=== PATIENT | female | born 1955 | race Caucasian/White ===

== ENCOUNTER 2021-06-20 08:45 | Emergency (ER) | payer MEDICARE, OTHER ==
--- NOTE | 2021-06-20 09:07 | EDM.PDOC ---
ED HPI GENERAL MEDICAL PROBLEM - General Chief Complaint: Respiratory Problem Stated Complaint: SHORT OF BREATH Time Seen by Provider: 06/20/21 09:06 Source of Information: Reports: Patient - History of Present Illness INITIAL COMMENTS - FREE TEXT/NARRATIVE: Марина, 66-year-old female, presents emergency department by private vehicle with complaint of difficulty breathing. She states this started last Tuesday and has persisted and slightly worsened. She states when laying supine she feels pressure in the abdomen making it difficult to breathe and is much better when seated. In regards to this she is slept for a couple hours a night in a seated position as she demonstrates by crossing her arms in front of me and leaning forward onto them. She smokes roughly a pack per day or greater but states she has not smoked since Tuesday secondary of the shortness of breath. She is not taking any medications as she felt she did not need the hydrochlorothiazide for her blood pressure and has not taken that for the past month. Has not been in the clinic since last spring. She states she has had previous allergic reactions it affected her breathing that were chemical induced specifically sensitive to round up. She states that her neighbor chronically sprays the yard for weeds and has spoken to her over the fact that she has dandelions and does not spray her weeds. Марина tells me that she is spoken with the neighbor about the perspective of being allergic/sensitive to chemicals in the neighborhood continues to spray [place] on her yard. She has had no exposures that she is aware of other than to alleged chemical although this past week is not been spraying weather, with the rain we have had, To which she acknowledges "that now we have had rain, the weeds are starting to grow again and may be the neighbor has been spraying." Onset: Gradual, Unknown/Unsure Onset Date: 06/15/21 Duration: Day(s):, Getting Worse Location: Reports: Chest, Abdomen Quality: Reports: Pressure Severity: Severe Improves with: Reports: Other (positioning) Worsens with: Reports: Movement Context: Reports: Activity Associated Symptoms: Reports: Shortness of Breath Bilateral Lower Back Pain Score (Numeric/FACES): 5 - Related Data Allergies Allergy/AdvReac Type Severity Reaction Status Date / Time Sulfa (Sulfonamide Allergy Mild Edema Verified 06/20/21 10:05 Antibiotics) Home Meds: Home Meds cephALEXin [Cephalexin] 500 mg PO BID 7 Days #14 capsule 06/20/21 [Rx] hydrALAZINE HCl [Hydralazine HCl] 10 mg PO BID 30 Days #60 tablet 06/20/21 [Rx] hydroCHLOROthiazide [Hydrochlorothiazide] 50 mg PO BID 06/20/21 [History] Past Medical History HEENT History: Reports: Impaired Vision Cardiovascular History: Reports: Hypertension, Syncope Respiratory History: Reports: Other (See Below) (Allergies versus sensitivities triggering shortness of breath) Gastrointestinal History: Reports: None - Past Imaging History Past Imaging History: Reports: CAT Scan, Xray Social & Family History - Family History Family Medical History: No Pertinent Family History - Tobacco Use Tobacco Use Status *Q: Current Every Day Tobacco User - Alcohol Use Alcohol Use History: Yes ED ROS GENERAL - Review of Systems Review Of Systems: See Below Constitutional: Reports: No Symptoms HEENT: Reports: No Symptoms Respiratory: Reports: Shortness of Breath, Wheezing Cardiovascular: Reports: Dyspnea on Exertion. Denies: Chest Pain, Blood Pressure Problem Endocrine: Reports: No Symptoms GI/Abdominal: Reports: Abdominal Pain. Denies: Constipation : Reports: No Symptoms Musculoskeletal: Reports: No Symptoms Skin: Reports: No Symptoms Neurological: Denies: Confusion, Trouble Speaking, Difficulty Walking Psychiatric: Reports: No Symptoms. Denies: Agitation Hematologic/Lymphatic: Reports: No Symptoms Immunologic: Reports: Environmental Allergy, Other (Chemical specifically Malo) ED EXAM, GENERAL - Physical Exam Exam: See Below Free Text/Narrative:: Alert, oriented, in no acute distress. There is no cyanosis nor pallor noted. HEENT is negative discharge or deformity. PERRLA no icterus no injection EOM intact. Facial symmetry is noted with a dry appearing mucous membrane and tongue orally. There is no involvement of the auditory canals or tympanic membranes. Neck is soft supple trace JVD is appreciated when she is placed from semifowler to near supine for evaluation of the abdomen. Thorax is raspy with wheezes noted greater right than the left. They are partial exhalation and not through the full course of the respiratory cycle. There is no stridor noted she is able to speak freely. Cardiac is tachycardic I do not appreciate murmur nor ectopic beats. Abdomen is soft I do not feel any mass bowel sounds are present when placed supine she states it is more difficult to breathe and does become an audible wheeze that resolves when return to semifowler positioning. It is at this time she states that she is not slept in bed demonstrating cross arm position leaning forward as she has been in chair or not against a table since Tuesday having only 2 hours a night of sleep. There is no edema to the extremities. Pulses correlate with apical heart rate. She is able to ambulate with no difficulty with a steady gait and denying any dizziness. She does not seem to demonstrate any worsening shortness of breath as she ambulates to the bathroom for urine sample. #1 Interpretation EKG Date: 06/20/21 Time: 09:20 Rhythm: NSR Rate (Beats/Min): 111 [place]: Normal P-Wave: Present QRS: Normal ST-T: Normal QT: Normal Comparison: NA - No Prior EKG Course - Vital Signs Last Recorded V/S: Last Vital Signs Temp 98.6 F 06/20/21 11:21 Pulse 104 H 06/20/21 11:21 Resp 24 H 06/20/21 11:21 BP 151/88 H 06/20/21 11:21 Pulse Ox 97 06/20/21 11:21 - Orders/Labs/Meds Orders: Active Orders 24 hr Category Date Time Status CULTURE BLOOD [BC] Stat Lab 06/20/21 09:25 Received CULTURE BLOOD [BC] Stat Lab 06/20/21 09:30 Received CULTURE URINE [RM] Stat Lab 06/20/21 09:20 Received Blood Culture x2 Reflex Set [OM.PC] Stat Oth 06/20/21 09:14 Ordered Peripheral IV Insertion Adult [OM.PC] Stat Oth 06/20/21 09:14 Ordered EKG 12 Lead [EK] Stat Ther 06/20/21 09:14 Ordered Labs: Laboratory Tests 06/20/21 06/20/21 06/20/21 Range/Units 09:20 09:20 09:20 WBC 9.90 (5.00-10.00) 10^3/uL RBC 5.23 (3.80-5.50) 10^6/uL Hgb 16.2 H (12.0-16.0) g/dL Hct 49.0 H (37.0-47.0) % MCV 93.7 H (82.0-92.0) fL MCH 31.0 (27.0-31.0) pg MCHC 33.1 (32.0-36.0) g/dL RDW 13.0 (11.5-14.5) % Plt Count 347 (150-400) 10^3/uL MPV 10.4 (7.4-10.4) fL Immature Gran % (Auto) 0.2 (0.0-5.0) % Neut % (Auto) 73.7 H (50.0-70.0) % Lymph % (Auto) 16.3 L (20.0-40.0) % [place] % (Auto) 4.8 (2.0-8.0) % Eos % (Auto) 3.9 H (1.0-3.0) % Baso % (Auto) 1.1 H (0.0-1.0) % Neut # (Auto) 7.29 H (2.50-7.00) 10^3/uL Lymph # (Auto) 1.61 (1.00-4.00) 10^3/uL [place] # (Auto) 0.48 (0.10-0.80) 10^3/uL Eos # (Auto) 0.39 H (0.10-0.30) 10^3/uL Baso # (Auto) 0.11 H (0.00-0.10) 10^3/uL Immature Gran # (Auto) 0.02 (0.00-0.50) 10^3/uL D-Dimer, Quantitative < 100 (<400) ng/mL Sodium (136-145) mmol/L Potassium (3.5-5.1) mmol/L Chloride (98-107) mmol/L Carbon Dioxide (21.0-32.0) mmol/L Anion Gap (5-15) mmol/L BUN (7-18) mg/dL Creatinine (0.51-1.17) mg/dL Est Cr Clr Drug Dosing mL/min Estimated GFR (MDRD) mL/min Glucose (70-140) mg/dL Lactic Acid (0.4-2.0) mmol/L Calcium (8.7-10.3) mg/dL Total Bilirubin (0.2-1.0) mg/dL AST (15-37) U/L ALT (14-63) U/L Alkaline Phosphatase (46-116) U/L Troponin I High Sens (0-51.000) pg/mL B-Natriuretic Peptide (0-100) pg/mL Total Protein (6.4-8.2) g/dL Albumin (3.40-5.00) g/dL Specimen Type Urincc Urine Color Yellow (YELLOW) Urine Appearance Clear (CLEAR) Urine pH 5.5 (5.0-9.0) Ur Specific [place] 1.020 (1.005-1.030) Urine Protein >=300 H (NEGATIVE) mg/dL Urine Glucose (UA) Negative (NEGATIVE) mg/dL Urine Ketones Trace H (NEGATIVE) mg/dL Urine Occult Blood Moderate H (NEGATIVE) Urine Nitrite Positive H (NEGATIVE) Urine Bilirubin Negative (NEGATIVE) Urine Urobilinogen 0.2 (0.2-1.0) E.U./dL Ur Leukocyte Esterase Negative (NEGATIVE) U Hyaline Cast (Auto) Few Urine RBC 0-5 (0-5) /HPF Urine WBC 20-30 H (0-5) /HPF Ur Epithelial Cells Few /LPF Urine Bacteria Many H (NONE TO FEW) /HPF 06/20/21 06/20/21 Range/Units 09:20 09:20 WBC (5.00-10.00) 10^3/uL RBC (3.80-5.50) 10^6/uL Hgb (12.0-16.0) g/dL Hct (37.0-47.0) % MCV (82.0-92.0) fL MCH (27.0-31.0) pg MCHC (32.0-36.0) g/dL RDW (11.5-14.5) % Plt Count (150-400) 10^3/uL MPV (7.4-10.4) fL Immature Gran % (Auto) (0.0-5.0) % Neut % (Auto) (50.0-70.0) % Lymph % (Auto) (20.0-40.0) % [place] % (Auto) (2.0-8.0) % Eos % (Auto) (1.0-3.0) % Baso % (Auto) (0.0-1.0) % Neut # (Auto) (2.50-7.00) 10^3/uL Lymph # (Auto) (1.00-4.00) 10^3/uL [place] # (Auto) (0.10-0.80) 10^3/uL Eos # (Auto) (0.10-0.30) 10^3/uL Baso # (Auto) (0.00-0.10) 10^3/uL Immature Gran # (Auto) (0.00-0.50) 10^3/uL D-Dimer, Quantitative (<400) ng/mL Sodium 140 (136-145) mmol/L Potassium 3.9 (3.5-5.1) mmol/L Chloride 102 (98-107) mmol/L Carbon Dioxide 24.5 (21.0-32.0) mmol/L Anion Gap 17.4 H (5-15) mmol/L BUN 9 (7-18) mg/dL Creatinine 0.73 (0.51-1.17) mg/dL Est Cr Clr Drug Dosing 64.58 mL/min Estimated GFR (MDRD) > 60 mL/min Glucose 119 (70-140) mg/dL Lactic Acid 1.2 (0.4-2.0) mmol/L Calcium 9.5 (8.7-10.3) mg/dL Total Bilirubin 0.4 (0.2-1.0) mg/dL AST 23 (15-37) U/L ALT 47 (14-63) U/L Alkaline Phosphatase 85 (46-116) U/L Troponin I High Sens 10.500 (0-51.000) pg/mL B-Natriuretic Peptide 13 (0-100) pg/mL Total Protein 7.8 (6.4-8.2) g/dL Albumin 3.92 (3.40-5.00) g/dL Specimen Type Urine Color (YELLOW) Urine Appearance (CLEAR) Urine pH (5.0-9.0) Ur Specific [place] (1.005-1.030) Urine Protein (NEGATIVE) mg/dL Urine Glucose (UA) (NEGATIVE) mg/dL Urine Ketones (NEGATIVE) mg/dL Urine Occult Blood (NEGATIVE) Urine Nitrite (NEGATIVE) Urine Bilirubin (NEGATIVE) Urine Urobilinogen (0.2-1.0) E.U./dL Ur Leukocyte Esterase (NEGATIVE) U Hyaline Cast (Auto) Urine RBC (0-5) /HPF Urine WBC (0-5) /HPF Ur Epithelial Cells /LPF Urine Bacteria (NONE TO FEW) /HPF Meds: Medications Discontinued Medications Generic Name Dose Route Start Last Admin Trade Name Ike PRN Reason Stop Dose Admin Hydralazine HCl 10 mg 06/20/21 10:18 06/20/21 10:24 Hydralazine 20 Mg/Ml Sdv IVPUSH 06/20/21 10:19 10 mg ONETIME ONE Administration Levalbuterol HCl 1.25 mg 06/20/21 11:11 06/20/21 11:18 Levalbuterol Hcl 1.25 Mg/3 Ml Neb NEB 06/20/21 11:12 1.25 mg ONETIME ONE Administration Metoprolol Tartrate 5 mg 06/20/21 09:27 06/20/21 09:32 Metoprolol Tartrate 5 Mg/5 Ml Sdv IVPUSH 06/20/21 09:28 5 mg ONETIME ONE Administration Sodium Chloride 10 ml 06/20/21 09:14 Sodium Chloride 0.9% 10 Ml Syringe FLUSH Q8HR PRN keep vein open - Re-Assessments/Exams Free Text/Narrative Re-Assessment/Exam: 06/20/21 10:23 States she is feeling better at this time as tachycardia has resolved with the Lopressor but blood pressure can continues to remain significantly elevated. We did discuss the UTI may be contributing slightly to it but I am still concerned that hypertension may be the underlying factor as well was contributing to her shortness of breath as all markers cardiac and pulmonary exams are normal. She does agree to a trial of hydralazine and see if we can get her pressures down in moderation. This would be a new medication to her so she is willing to try it is what is been used in the past is not always been successful or developed an AMBROCIO cough from lisinopril. She also agrees to Keflex for her UTI. 06/20/21 10:27 She does give more details now that she sounds like she has had issues lifelong intermittently with hypertension and had been referred to a specialist in [place] some years ago. At that time they found she had stenosis of renal artery which was contributing to her blood pressure. I do express that no matter what we do today and obtain improvement she will need follow-up and should possibly undergo renal ultrasound to rule out any anomaly. Free Text/Narrative Re-Assessment/Exam: 06/20/21 11:11 As we are preparing for discharge she had the urge to cough which led to a "hacking episode." She feels that she is bringing phlegm up secondary the fact that she is smoking cessation since Tuesday. We will use Xopenex 1.25 mg nebulizer treatment to see if we can help keep the heart rate from accelerating as we know it would with albuterol. She was offered observation admission which she declined stating she is feels she can go home she just wants to get this mucous issue cleared up. 06/20/21 11:31 Xopenex nebulizer administered she states she feels significantly better at this time. Auscultation yields better airflow. Hesitant to place her on albuterol secondary of her tachycardia issues and seemingly improved with Xopenex treatment to which she acknowledges I do advise her to bring this up advise her to bring this up when she goes for her recheck to discuss pulmonary components as well as the blood pressure. Possibility of further testing including pulmonary to see if she would be a qualifier or needing bronchial treatments per Medicare guidelines. 06/20/21 11:43 Departure - Departure Time of Disposition: 11:03 Disposition: Home, Self-Care 01 Condition: Good Clinical Impression: Smoking addiction Hypertension Qualifiers: Hypertension type: primary hypertension Qualified Code(s): I10 - Essential (primary) hypertension UTI (urinary tract infection) Qualifiers: Urinary tract infection type: acute cystitis Hematuria presence: with hematuria Qualified Code(s): N30.01 - Acute cystitis with hematuria - Discharge Information Prescriptions: cephALEXin [Cephalexin] 500 mg PO BID 7 Days #14 capsule hydrALAZINE HCl [Hydralazine HCl] 10 mg PO BID 30 Days #60 tablet Instructions: Smoking Tobacco Information, Adult, How to Take Your Blood Pressure, [id number], Hypertension, Adult, [id number], Hypertension, Adult Referrals: Rachel Middleton MD [Primary Care Provider] - Forms: ED Department Discharge Additional Instructions: Your test results today show that you have a urinary tract infection. We will initiate cephalexin (Keflex) for that. Your blood pressure and heart rate improved with the Lopressor with a heart rate coming down to normal limits. The blood pressure remained elevated so you were given 10 mg of hydralazine IV which brought her pressure down to a near recommended level. To continue with blood pressure treatment hydralazine 10 mg twice a day will be implemented and a prescription for that as well as the cephalexin have been sent to [facility] here in [place]. You will need to contact the clinic to schedule a reevaluation of your blood pressure as well as to discuss further testing whether be ultrasound or CT to determine if blood flow is adequate and rule out any anomalies to your kidneys. Since you had renal artery stenosis previously it is possible that that has returned. Continue to maintain somewhat sedentary lifestyle over the weekend until you are feeling better as you may experience some fatigue when your blood pressure is more moderate range as compared to being hypertensive. Call or return to the emergency department if significant concerns should develop over the weekend. Contact the clinic for an appointment when they open next week. Sepsis Event Note (ED) - Evaluation Sepsis Screening Result: No Definite Risk - Focused Exam Vital Signs: Vital Signs Temp Pulse Pulse Resp BP BP Pulse Ox 06/20/21 11:21 98.6 F 104 H 24 H 151/88 H 97 06/20/21 10:56 92 22 H 145/87 H 94 L 06/20/21 10:29 80 22 H 167/100 H 95 06/20/21 10:07 80 26 H 171/111 H 96 06/20/21 09:45 78 20 161/107 H 93 L 06/20/21 09:32 117 H 191/115 H 06/20/21 09:15 113 H 27 H 194/124 H 92 L 06/20/21 09:02 96.7 F L 126 H 26 H 238/132 H 92 L 06/20/21 08:45 96.7 F L 126 H 26 H 238/132 H 92 L - Problem List & Annotations (1) Shortness of breath at rest SNOMED Code(s): 419886367 Code(s): R06.02 - SHORTNESS OF BREATH Status: Acute Priority: High Current Visit: Yes (2) Hypertension SNOMED Code(s): 75693282 Code(s): I10 - ESSENTIAL (PRIMARY) HYPERTENSION Status: Acute Priority: High Current Visit: Yes Qualifiers: Hypertension type: primary hypertension Qualified Code(s): I10 - Essential (primary) hypertension (3) Smoking addiction SNOMED Code(s): 792542242, 45804396, 350666846 Code(s): F17.200 - NICOTINE DEPENDENCE, UNSPECIFIED, UNCOMPLICATED Status: Acute Priority: High Current Visit: Yes (4) UTI (urinary tract infection) SNOMED Code(s): 24008549 Code(s): N39.0 - URINARY TRACT INFECTION, SITE NOT SPECIFIED Status: Acute Current Visit: Yes Qualifiers: Urinary tract infection type: acute cystitis Hematuria presence: with hematuria Qualified Code(s): N30.01 - Acute cystitis with hematuria (5) Cough SNOMED Code(s): 46773273 Code(s): R05 - COUGH Status: Chronic Priority: Medium Current Visit: Yes - Problem List Review Problem List Initiated/Reviewed/Updated: Yes - My Orders Last 24 Hours: My Active Orders 06/20/21 09:14 Blood Culture x2 Reflex Set [OM.PC] Stat Peripheral IV Insertion Adult [OM.PC] Stat EKG 12 Lead [EK] Stat 06/20/21 09:20 CULTURE URINE [RM] Stat 06/20/21 09:25 CULTURE BLOOD [BC] Stat 06/20/21 09:30 CULTURE BLOOD [BC] Stat - Assessment/Plan Last 24 Hours: My Active Orders 06/20/21 09:14 Blood Culture x2 Reflex Set [OM.PC] Stat Peripheral IV Insertion Adult [OM.PC] Stat EKG 12 Lead [EK] Stat 06/20/21 09:20 CULTURE URINE [RM] Stat 06/20/21 09:25 CULTURE BLOOD [BC] Stat 06/20/21 09:30 CULTURE BLOOD [BC] Stat Plan: Your test results today show that you have a urinary tract infection. We will initiate cephalexin (Keflex) for that. Your blood pressure and heart rate improved with the Lopressor with a heart rate coming down to normal limits. The blood pressure remained elevated so you were given 10 mg of hydralazine IV which brought her pressure down to a near recommended level. To continue with blood pressure treatment hydralazine 10 mg twice a day will be implemented and a prescription for that as well as the cephalexin have been sent to [facility] here in [place]. You will need to contact the clinic to schedule a reevaluation of your blood pressure as well as to discuss further testing whether be ultrasound or CT to determine if blood flow is adequate and rule out any anomalies to your kidneys. Since you had renal artery stenosis previously it is possible that that has returned. Continue to maintain somewhat sedentary lifestyle over the weekend until you are feeling better as you may experience some fatigue when your blood pressure is more moderate range as compared to being hypertensive. Call or return to the emergency department if significant concerns should develop over the weekend. Contact the clinic for an appointment when they open next week.
[2021-06-20] MEDS ORDERED: Sodium Chloride 0.9% 10 ML Syringe FLUSH PRN (09:14)
[2021-06-20] MEDS ORDERED: Metoprolol Tartrate 5 MG/5 ML SDV IVPUSH ONE (09:27)
[2021-06-20 10:05] LABS: ANION GAP 17.4 mmol/L (5-15); CHLORIDE,CL 102 mmol/L (98-107); SODIUM,NA 140 mmol/L (136-145)
[2021-06-20] MEDS ORDERED: hydrALAZINE 20 MG/ML SDV IVPUSH ONE (10:18)
--- NOTE | 2021-06-20 10:18 | CR ---
[id number] RAD/RAD Chest PA And Lateral EXAM: RAD Chest PA And Lateral INDICATION: SHORT OF BREATH COMPARISON: None. DISCUSSION: Cardiomediastinal silhouette is normal in size and contour. No infiltrate, effusion, pneumothorax, or edema. Pulmonary hyperinflation. IMPRESSION: No acute cardiopulmonary abnormality. Jayden Gonzalez DO 06/20/21 1017 Thank you for allowing us to participate in the care of your patient.
[2021-06-20] MEDS ORDERED: Levalbuterol HCl 1.25 MG/3 ML Neb NEB ONE (11:11)
== END 2021-06-20 11:40 | disposition home or self-care (01) ==
LOC: KA.ED 08:45
DX: N30.01 Acute cystitis with hematuria (principal); I10 Essential (primary) hypertension; F17.200 Nicotine dependence, unspecified, uncomplicated; Z88.2 Allergy status to sulfonamides; Z72.0 Tobacco use
CPT/HCPCS: 36415; 71046; 80053; 81001; 83605; 83880; 84484; 85025; 85379; 87040; 87086; 87088; 87186; 93005; 94640; 96374; 96375; 99284; 99285-25; J0360; J3490; J7612-GY

== ENCOUNTER 2022-06-14 16:27 | Inpatient (IN) | payer MEDICARE, OTHER ==
[2022-06-14] MEDS ORDERED: Sodium Chloride 0.9% 10 ML Syringe FLUSH PRN (16:34)
[2022-06-14] MEDS ORDERED: methylPREDNISolone Sodium Succinate 125 MG/2 ML SDV IVPUSH ONE (17:00)
[2022-06-14] MEDS ORDERED: Sodium Chloride 0.9% 100 ML IV SCH (17:15)
[2022-06-14] MEDS ORDERED: Sodium Chloride 0.9% 50 ML IV SCH (17:15)
[2022-06-14] MEDS: Azithromycin 500 MG in Sodium Chloride 0.9% 250 ML IV SCH (17:19)
[2022-06-14] MEDS: cefTRIAXone 1 GM Vial IVPUSH SCH (17:32)
[2022-06-14] MEDS: Albuterol/Ipratropium 3.0-0.5 MG/3 ML Neb Soln NEB SCH ×2 (17:39→22:19)
[2022-06-14] MEDS ORDERED: Lisinopril 10 MG Tab PO SCH (21:00)
[2022-06-14] MEDS: Nicotine 14 MG/24 Hr Patch TRDERM SCH (22:18)
[2022-06-14] MEDS: Losartan 25 MG Tab PO SCH (22:18)
[2022-06-15] MEDS: Albuterol/Ipratropium 3.0-0.5 MG/3 ML Neb Soln NEB SCH ×4 (04:40→23:12)
[2022-06-15 07:45] LABS: ANION GAP 13.4 mmol/L (5-15)
[2022-06-15] MEDS: Nicotine 14 MG/24 Hr Patch TRDERM SCH (09:51)
[2022-06-15] MEDS: Hydrochlorothiazide 25 MG Tab PO SCH (09:52)
[2022-06-15] MEDS ORDERED: EPINEPHrine 1:10,000 1 MG/10 ML Syringe IVPUSH PRN (10:38)
[2022-06-15] MEDS ORDERED: Atropine 0.1 MG/ML 10 ML Syringe IVPUSH PRN (10:38)
[2022-06-15] MEDS ORDERED: Nitroglycerin 0.4 MG Tab.SL SL PRN (10:38)
[2022-06-15] MEDS ORDERED: Lidocaine 2% 100 MG/5 ML Syringe IVPUSH PRN (10:38)
[2022-06-15] MEDS ORDERED: predniSONE 10 MG Tab PO SCH (12:00)
[2022-06-15] MEDS ORDERED: Acetaminophen 325 MG Tab PO PRN (12:00)
[2022-06-15] MEDS ORDERED: Potassium Chloride 20 MEQ Tab.ER PO ONE (14:24)
[2022-06-15] MEDS: Magnesium Oxide 500 MG Tab PO SCH (15:15)
[2022-06-15] MEDS: Azithromycin 500 MG in Sodium Chloride 0.9% 250 ML IV SCH (17:02)
[2022-06-15] MEDS: cefTRIAXone 1 GM Vial IVPUSH SCH (17:02)
[2022-06-15] MEDS ORDERED: Menthol 7.6 MG Sugar Free Lozenge PO PRN (17:26)
[2022-06-15] MEDS: Losartan 25 MG Tab PO SCH (20:53)
[2022-06-16] MEDS: Albuterol/Ipratropium 3.0-0.5 MG/3 ML Neb Soln NEB SCH ×2 (05:30→11:12)
[2022-06-16] MEDS ORDERED: Simethicone 80 MG Tab.Chew PO PRN (07:47)
[2022-06-16 08:14] LABS: ANION GAP 11.3 mmol/L (5-15)
[2022-06-16] MEDS: Hydrochlorothiazide 25 MG Tab PO SCH (08:48)
[2022-06-16] MEDS: Magnesium Oxide 500 MG Tab PO SCH (08:48)
[2022-06-16] MEDS: Nicotine 14 MG/24 Hr Patch TRDERM SCH (08:49)
== END 2022-06-16 12:38 | disposition home or self-care (01) | DRG 193 ==
LOC: UNDOADMIN 16:27 → KA.MS 16:27
PROVIDERS: ADMIT Nurse Practitioner Family; ATTEND Student in an Organized Health Care Education/Training Program
DX: J18.9 Pneumonia, unspecified organism (principal); J96.01 Acute respiratory failure with hypoxia; D72.829 Elevated white blood cell count, unspecified; T38.0X5A Adverse effect of glucocorticoids and synthetic analogues, initial encounter; E87.6 Hypokalemia; Z20.822 Contact with and (suspected) exposure to COVID-19; E83.42 Hypomagnesemia; I10 Essential (primary) hypertension; F17.210 Nicotine dependence, cigarettes, uncomplicated; R31.9 Hematuria, unspecified
CPT/HCPCS: 36415; 71275; 80048; 80053; 83605; 83735; 83880; 84145; 84484; 85025; 86140; 94640; A9270-GY; J0456; J0696; J2930; J7050; J7512; J7620-GY